=== PATIENT | male | born 1950 | race African-American/Black ===

== ENCOUNTER 2021-06-04 10:52 | Emergency (ER) | payer BC, MEDICARE ==
[~2021-06-04] VITALS: Ht 180.3 cm; Wt 120.0 kg
[2021-06-04 11:26] VITALS: BP 134/87
[2021-06-04] MEDS ORDERED: TC1U15 TP (11:43)
[2021-06-04] MEDS ORDERED: VALA100044 MT (11:43)
== END 2021-06-04 13:10 | disposition home or self-care (01) ==
LOC: ER 10:52
DX: B02.9 Zoster without complications (principal)
CPT/HCPCS: 99282